=== PATIENT | female | born 1990 | race Caucasian/White ===

== ENCOUNTER 2021-01-06 11:45 | Emergency (ER) | payer BC, SELFPAY ==
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
[2021-01-06 11:53] VITALS: BP 135/82; PULSE 60; RESP 18; TEMP 36.6; O2SAT 98
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
== END 2021-01-06 12:40 | disposition home or self-care (01) ==
PROVIDERS: Emergency Provider Nurse Practitioner
DX: S93.602A Unspecified sprain of left foot, initial encounter (principal); V49.9XXA Car occupant (driver) (passenger) injured in unspecified traffic accident, initial encounter
CPT/HCPCS: 73630; 99213; G0463